=== PATIENT | female | born 1950 | race American Indian/Alaskan Native ===

== ENCOUNTER 2020-08-31 10:28 | Outpatient (CLI) | payer MEDICARE ==
--- NOTE | 2020-08-31 11:51 | XRay Report ---
BILATERAL KNEE 1 VIEW(S) INDICATION / CLINICAL INFORMATION: PAIN IN UNSPECIFIED KNEE COMPARISON: None available. FINDINGS: BONES / JOINT(S): No acute fracture or subluxation. Small ossific density at the region of the proxim al attachment of the MCL on the right suggesting chronic injury, Ahsan Stieda lesion. Moderate d egenerative changes with considerable medial joint space narrowing. Marginal osteophytosis is also pr esent. SOFT TISSUES: No significant abnormality. ADDITIONAL FINDINGS: None. Signer Name: Ric Cardona MD Signed: 08/31/2020 11:46 AM Workstation Name: [id number]
--- NOTE | 2020-08-31 11:52 | XRay Report ---
LUMBAR SPINE 3 VIEWS INDICATION / CLINICAL INFORMATION: LOW BACK PAIN. COMPARISON: None available. FINDINGS: VERTEBRAE: No acute fracture. No significant malalignment. DISC SPACES / FACET JOINTS:Intervertebral disc space heights are satisfactorily maintained. 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 PARASPINAL SOFT TISSUES:1 cm calcific focus in the region of the right renal shadow possibly represen ting a nonobstructing nephrolith. ADDITIONAL FINDINGS: None. Signer Name: Ric Cardona MD Signed: 08/31/2020 11:48 AM Workstation Name: [id number]
== END 2020-08-31 10:29 | disposition home or self-care (01) ==
LOC: XRAY 10:28
PROVIDERS: ATTEND Orthopaedic Surgery
DX: M17.0 Bilateral primary osteoarthritis of knee (principal); M47.816 Spondylosis without myelopathy or radiculopathy, lumbar region
CPT/HCPCS: 72100; 73565